=== PATIENT | male | born 1945 | race Caucasian/White ===

== ENCOUNTER → 2018-04-15 | Outpatient (CLI) | payer MEDICARE ==
--- NOTE | 2018-04-15 15:51 | KCIC ---
EXAM: Lumbar spine, flexion and extension. HISTORY: Pain. COMPARISON: CT dated 12/20/2011. FINDINGS: Lateral neutral, flexion and extension views of the lumbar spine are obtained. There is a transitional lumbosacral segment. This is considered a sacralized L5 segment for this dictation. Based on this numbering system, there is minimal grade 1 anterolisthesis of L4 on L5 in neutral position, measuring 2 mm. This increases to 5 mm with flexion and does not change with extension. There is degenerative endplate remodeling at all levels. There is facet arthropathy at the mid lower lumbar levels. IMPRESSION: 1. Grade 1 anterolisthesis of L4 on L5 which increases with flexion. 2. Multilevel degenerative change. 3. Transitional lumbosacral segment, considered a sacralized L5 segment for this dictation. Electronically signed by: Coco Salcedo MD (04/15/2018 3:47 PM) [email or web address]
== END | disposition home or self-care (01) ==
LOC: KCIC 15:01
PROVIDERS: ATTEND Neurological Surgery
DX: M43.16 Spondylolisthesis, lumbar region (principal); M47.896 Other spondylosis, lumbar region
CPT/HCPCS: 72100

== ENCOUNTER → 2018-05-06 | Outpatient (CLI) | payer MEDICARE ==
[~2018-05-06] MED LIST: AMLO2.5T3 PO; ASPI-630 PO; IOHEXOL 180 MG/ML 10 ML VIAL. ONE; methylPREDNISolone ACETATE 40 MG/ML VIAL. ONE; methylPREDNISolone ACETATE 80 MG/ML VIAL. ONE
--- NOTE | 2018-05-06 19:14 | PAIN ---
DATE OF SERVICE: 05/06/2018 INITIAL CONSULTATION FOR PAIN CLINIC CHIEF COMPLAINT: Low back and left lower extremity pain. HISTORY OF PRESENT ILLNESS: This is a 72-year-old male who presents with history of pain in the low back, left lower extremity, status post lumbar diskectomy at 3-4 and 4-5 about 6 years ago with similar symptoms. The patient reports the pain was completely relieved until about the past 6 months when it came back gradually, not a result of any specific injury or accident he is aware of, radiating to the low back and left buttock, posterior gluteus, posterior lateral thigh, lateral anterior thigh and into the feet, where his foot feels swollen on the left side. The patient reports the pain is sharp, stabbing, tingling, radiating, worse with walking, standing, changing positions, wakes him up at night only very rarely, most nights does not, does not affect his bowel or bladder control, but does affect his ability to walk where his left leg fatigues easily. The patient has had no recent physical therapies or other chiropractic treatments or other exercises. He walks daily, but the pain is beginning to impede this. The patient reports a disability rate from 0-10, 10 being the worst, is a 3 with family and home responsibilities, 6 with recreation, 4 with social activity, 3 with occupation and sexual behavior, and 0 with self-care and life support activities. The patient did have a repeat MRI scan of the lumbar spine showing mild levoscoliosis, mild degenerative change in the lumbar spine with facet degenerative changes most pronounced at L5 and S1, central canal stenosis most pronounced at L3-L4 and L4-L5 with mild disk bulge and moderate facet degenerative changes with mild central stenosis, and mild bilateral neuroforaminal narrowing at L4-L5 as well as L3-L4. PAST MEDICAL HISTORY: Significant for hypertension, arthritis, cataracts. PREVIOUS SURGERY: Include lumbar laminectomy 6 years ago and diskectomy, bilateral knee replacements in 08/2016, multiple previous knee surgeries and cataract extraction. CURRENT MEDICATIONS: Include amlodipine and daily baby aspirin, which he has held for 3 days prior to this visit. ALLERGIES: The patient has no known drug allergies. FAMILY HISTORY: Significant for no major medical problems or conditions he is aware of. SOCIAL HISTORY: The patient drinks alcohol only very rarely, does not use tobacco, does not use any illegal, illicit or recreational drugs. He is , lives with his spouse and lives locally in [place], [place]. REVIEW OF SYSTEMS: The patient's review of systems is positive for those items mentioned in history of present illness. All systems reviewed and otherwise negative. It is complete, full and well documented on the patient's chart. PHYSICAL EXAMINATION: VITAL SIGNS: Blood pressure is 113/73, pulse is 85, respirations 18, temperature 98.2 degrees Fahrenheit. HEENT: Shows normocephalic, atraumatic. Extraocular movements are intact and symmetrical. Oral cavity: Mucous membranes moist and pink. Dentition is intact. NECK: Shows anterior throat supple without palpable lymphadenopathy noted. Swallow reflex symmetrical. CHEST: Shows normal with inspection. Breath sounds are clear to auscultation bilaterally. HEART: Shows S1, S2 clear. No murmurs auscultated. ABDOMEN: Obese, soft, nontender, nondistended. No palpable organomegaly is noted. No rebound or guarding demonstrated. BACK: Shows spine grossly in the midline, normal appearing thoracic kyphosis and minor flattening of lumbar lordotic curvature. A well-healed surgical scar noted in the midline. Lumbar paraspinous muscle shows symmetrical on inspection, on palpation shows some moderate tenderness only diffusely in the low lumbar paraspinous muscles bilaterally. No tenderness over the spinous processes, sacrum or sacroiliac regions. The patient has good rotational motion of the lumbar spine both laterally as well as extension and flexion without significant pain or difficulty noted. EXTREMITIES: The patient's lower extremities show deep tendon reflexes at 1+ in the patellar and tendo calcaneus tendons and equal. Motor exam is strong with 5/5 dorsiflexion, extension, quadriceps and hamstring flexion. Peripheral pulses are 1+ posterior tibia. No peripheral edema is noted. Straight leg raise noted to be negative bilaterally. Gaenslen's and Jose maneuvers are negative bilaterally as well. The patient is able to stand, stand on his toes without difficulty or loss of balance, walks with a normal appearing gait, does not appear to favor the right or left lower extremity significantly, not using any assistive devices to ambulate. SKIN: Shows warm and dry, good turgor. No edema. No sores, rashes or bruising. IMPRESSION: 1. This is a 72-year-old male with approximately 6-month history of increasing pain in low back and left lower extremity in a radicular fashion. 2. MRI scan of the lumbar spine as noted. 3. Hypertension. 4. Arthritis. PLAN: Options were discussed with the patient including conservative medical management, physical therapy, and interventional technique. He would like to pursue interventional techniques. We discussed a lumbar epidural steroid injection using description as well as anatomical models to describe the procedure. Risks were then discussed including, but not limited to bleeding, infection, possibility of epidural hematoma, subsequent neurologic compromise, dural punctures, headaches, spinal cord and/or nerve damage, side effects of steroid medication and poor results regarding pain control. The patient understands and wished to proceed. The patient will return to the clinic in approximately 2 weeks for followup. He was counseled on his return appointment, activity level and side effects to be aware of. DIAGNOSES: Lumbar radiculopathy with lumbar degenerative disk disease, lumbar spinal stenosis and post-lumbar laminectomy syndrome. PROCEDURE: Lumbar epidural steroid injection, translaminar approach at L4-L5 level using C-arm fluoroscopic guidance under sterile prep and drape using local anesthetic. MEDICATION INJECTED: A total of 120 mg Depo-Medrol plus 10 mL of preservative-free normal saline and 2 mL of Isovue for contrast. CONDITION AT DISCHARGE: Stable. The patient tolerated the procedure well, had no complications. SAMPSON RICHMOND MD DR: ALEXANDRA/yonny JOB#: [id number] / [id number]
== END ==
LOC: PNCL 13:55
PROVIDERS: ATTEND Anesthesiology
DX: M51.16 Intervertebral disc disorders with radiculopathy, lumbar region (principal); M48.061 Spinal stenosis, lumbar region without neurogenic claudication; M96.1 Postlaminectomy syndrome, not elsewhere classified; I10 Essential (primary) hypertension; M19.90 Unspecified osteoarthritis, unspecified site; Z98.890 Other specified postprocedural states; Z98.49 Cataract extraction status, unspecified eye; Z96.653 Presence of artificial knee joint, bilateral; Z79.82 Long term (current) use of aspirin; Z79.899 Other long term (current) drug therapy; Z72.89 Other problems related to lifestyle
CPT/HCPCS: 62323; J1030; J1040; Q9965

== ENCOUNTER → 2018-07-21 | Outpatient (CLI) | payer MEDICARE ==
[~2018-07-21] MED LIST changes: -AMLO2.5T3 PO; +AMLO2.5T5 PO
--- NOTE | 2018-07-22 02:09 | PAIN ---
DATE OF SERVICE: 07/21/2018 PROGRESS NOTE FOR PAIN CLINIC DIAGNOSES: Lumbar radiculopathy with lumbar degenerative disk disease, lumbar spinal stenosis and post-lumbar laminectomy syndrome. HISTORY OF PRESENT ILLNESS: The patient is a 73-year-old male who returns for followup status post lumbar epidural steroid injection x 1 on 05/06/2018. The patient did very well with this, reports about an 80% improvement for the first few months and then about a 50% improvement over the past month. The patient reports still painful in the low back and left leg but much better than it was previously. The patient reports it is a 6 on a scale 10 at its worst, 5 on average, 0 at its least and is a 5 today. The patient is a sharp, tingling, burning, stabbing in the low back, radiating to the posterior gluteus, posterolateral thigh, lateral anterior thigh, medial thigh, sometimes in the lower leg and medial aspect as well but usually in the upper leg and in the back. The patient reports no new motor or sensory deficits and no new bowel or bladder incontinence or other complaints. The patient reports he has been increasing his activity with greater ease and comfort, both at home, traveling better, sleeping well at night, improved with walking distances especially. PHYSICAL EXAMINATION: VITAL SIGNS: The patient's blood pressure is 151/89, pulse 53, respirations are 18 and temperature 97.8 degrees Fahrenheit. Height is 6 feet 3 inches and weight is 252 pounds. GENERAL: The patient is awake, alert, oriented, appropriate and very pleasant demeanor. HEENT: Head shows normocephalic and atraumatic. Extraocular movements are intact and symmetrical. Oral cavity: Mucous membranes are moist and pink. Dentition is intact. NECK: Shows anterior throat supple without palpable lymphadenopathy noted. Swallow reflex symmetrical. CHEST: Shows normal on inspection. Breath sounds clear to auscultation bilaterally. HEART: Shows S1 and S2 clear. No murmurs auscultated. ABDOMEN: Soft, nontender and nondistended. No palpable organomegaly is noted. No rebound or guarding demonstrated. BACK: Shows spine grossly in the midline. Normal appearing thoracic kyphosis and lumbar lordotic curvatures slightly flattened. The patient's lumbar paraspinous musculature shows symmetrical on inspection, with palpation shows some moderate tenderness to palpation diffusely in the mid and lower lumbar distribution without radiation. The patient shows good rotational motion of the lumbar spine, both laterally as well as extension and flexion without recreating pain. EXTREMITIES: The patient's lower extremities show deep tendon reflexes 1+ in the patella and tendo-calcaneus tendons. Motor exam is approximately 5/5 with dorsiflexion, extension, quadriceps and hamstring flexion and equal and symmetrical. Peripheral pulses are 1+ posterior tibial. No peripheral edema is noted bilaterally. Options were discussed with the patient. The patient's old chart was reviewed as well as his current medication regimen updated. Current review of systems updated today as well. We will proceed with a lumbar epidural steroid injection, the second in this series. Risks were again discussed including, but not limited to bleeding, infection, possibility of epidural hematoma, subsequent neurological compromise, dural puncture, headaches, spinal cord and/or nerve damage, side effects of steroid medication and poor results regarding pain control. The patient understands and wished to proceed. The patient will return to the clinic in approximately 2 weeks for followup, was counseled as to return appointment, activity level and side effects to be aware of. DIAGNOSIS: Lumbar radiculopathy with lumbar degenerative disk disease, lumbar spinal stenosis and post-lumbar laminectomy syndrome. PROCEDURE: Lumbar epidural steroid injection, translaminar approach at the L4-L5 level using C-arm fluoroscopic guidance under sterile prep and drape using local anesthetic. MEDICATION INJECTED: A total of 120 mg Depo-Medrol plus 10 mL of preservative-free normal saline and 2 mL of Isovue for contrast. CONDITION AT DISCHARGE: Stable. The patient tolerated the procedure well and had no complications. SAMPSON RICHMOND MD DR: ALEXANDRA/yonny JOB#: [id number] / [id number]
== END | disposition home or self-care (01) ==
LOC: PNCL 13:45
PROVIDERS: ATTEND Anesthesiology
DX: M51.16 Intervertebral disc disorders with radiculopathy, lumbar region (principal); M48.061 Spinal stenosis, lumbar region without neurogenic claudication; M96.1 Postlaminectomy syndrome, not elsewhere classified
CPT/HCPCS: 62323; J1030; J1040; Q9965

== ENCOUNTER → 2021-01-10 | Outpatient (CLI) | payer MEDICARE ==
[~2021-01-10] MED LIST changes: +ACET325T9 PO; +CARV6.2511 PO; +CEPH125S PO; +FURO-69 PO; -methylPREDNISolone ACETATE 40 MG/ML VIAL. ONE
--- NOTE | 2021-01-10 11:20 | PDOC ---
Progress Note - Pain Clinic Date of Service: DOS: DATE: 01/10/21 TIME: 11:16 Diagnosis: Dx: Lumbar radiculopathy with lumbar degenerative disc disease lumbar spinal stenosis and lumbar postlaminectomy syndrome History or Present Illness: HPI: 75-year-old male presents with history of pain low back and right lower extremity previously seen July 2018 patient did very well after lumbar epidural steroid injection but it was his left leg that was problematic now his right leg is going on for about 4 to 5 months patient reports that perhaps longer than that is very noticeable he did see his neurosurgeon who did a new MRI scan which we discussed with him today showing some significant stenosis at the L3-4 as well as L4-5 level and severe arthropathy at L4-5 with moderate to severe spinal stenosis L2-3 and moderate stenosis L3-4 and L4-5. Patient reports that his his right leg now which is new as his left leg was always problematic 1 but after his last visit here that leg his pain 100 and improvement for several years patient reports the pain now is increasing low back right lower extremity posterior gluteus posterior lateral thigh lateral anterior thigh anteromedial thigh medial lower leg patient describes it as stabbing and sharp aching severe worse with walking standing worse first thing in the morning but as the day goes by it does ease up slightly but is still difficult in the evening patient reports is not been awakened from sleep at night is generally better with sitting or laying down patient reports is a 10 on scale 10 is worse over the past week 10 on average 5 its least and is a 5 today. Patient reports no loss of motor function no bowel or bladder incontinence. Physical Exam: VS: Blood pressure is 136/79 pulse 57 respirations are 18 temperature is 98.0 F height is 6 feet 3 inches weight is 230 pounds PE: PHYSICAL EXAMINATION: GENERAL: The patient is awake, alert, oriented, appropriate, very pleasant in demeanor HEENT: Shows normocephalic, atraumatic. Extraocular movements are intact and symmetrical. Oral cavity: Mucous membranes moist and pink. NECK: Shows anterior throat supple without palpable lymphadenopathy noted. Swallow reflex symmetrical. CHEST: Shows normal on inspection. Breath sounds are clear bilaterally, distant but no rales rhonchi or wheezes. HEART: Shows S1, S2 clear. No murmurs auscultated. ABDOMEN: Soft, nontender, nondistended, obese. No palpable organomegaly is noted. BACK: Shows spine grossly in the midline. Normal-appearing cervical lordotic curvature. There is slightly increased thoracic kyphosis, some flattening of the lumbar lordotic curvature, with well-healed surgical scar in the midline. Lumbar paraspinous muscles show symmetrical on inspection, on palpation shows some moderate tenderness diffusely throughout the upper, middle and lower distribution of the paraspinous muscles without specific trigger points, without radiation of pain. The patient has good rotational motion of the lumbar spine, both laterally as well as extension and flexion without significant difficulty. No tenderness over the spinous processes, sacrum or sacroiliac regions. EXTREMITIES: Lower extremities show deep tendon reflexes 1+ in the patellar and tendo calcaneus tendons. Motor exam is 5 on a scale of 5 with right dorsiflexion, extension, quadriceps and hamstring flexion and 5/5 on the left. Peripheral pulses are 1+ posterior tibial. No peripheral edema is noted bilaterally. Lower extremities are warm and dry to touch, equal in color and appearance. SKIN: Shows warm and dry, good turgor. No edema. No sores, rashes or bruising throughout. Procedure: Procedure: Options were discussed with the patient. Patient chart was reviewed, current medication regimen updated, and current review of systems updated today as well. We will proceed with lumbar epidural steroid injection today with fluoroscopic guidance. Risks were discussed including but not limited to: Bleeding, infection, possibility of epidural hematoma and subsequent neurological compromise, dural puncture, headaches, spinal cord and/or nerve damage, side effects of steroid medication, and poor results regarding pain control. Patient understands and wished to proceed. Patient will return to the clinic in approximately 2 weeks for follow-up, was counseled as to return appointment active level and side effects be aware of. Medication Injected: Med Injected: Procedure is lumbar epidural steroid injection under local anesthetic using mikayla rile prep and drape at the L4-5 level using C-arm fluoroscopic guidance in both AP and lateral views medications injected is 120 mg Depo-Medrol +10mL preservative-free normal saline and 2 mL contrast- condition at discharge is stable patient tolerated procedure well had no complications. Condition at Discharge: Condition at Discharge: Condition at discharge stable, patient already the procedure well and had no complications. SAMPSON RICHMOND MD Jan 10, 2021 11:19
--- NOTE | 2021-01-10 11:20 | PDOC4 ---
Procedure Note: ICD 10 Code: ICD 10 Code: M54.16 M4 8.07 M5 1.36 M 96.1 Procedure Note: Patient was consented for lumbar epidural steroid injection with fluoroscopic guidance. Risks were discussed including but not limited to: Bleeding, infection, possibility of epidural hematoma and subsequent neurological compromi se, dural puncture, headaches, spinal cord and/or nerve damage, side effects of steroid medication, and poor results regarding pain control. Patient understands and wished to proceed. Procedure is lumbar epidural steroid injection under local anesthetic using sterile prep and drape at the L4-5 level using C-arm fluoroscopic guidance in both AP and lateral views medications injected is 120 mg Depo-Medrol +10mL preservative-free normal saline and 2 mL contrast- condition at discharge is stable patient tolerated procedure well had no complications. SAMPSON RICHMOND MD Jan 10, 2021 11:20
== END | disposition home or self-care (01) ==
LOC: PNCL 10:16
PROVIDERS: ATTEND Anesthesiology
DX: M51.16 Intervertebral disc disorders with radiculopathy, lumbar region (principal); M48.061 Spinal stenosis, lumbar region without neurogenic claudication; M96.1 Postlaminectomy syndrome, not elsewhere classified; Z79.82 Long term (current) use of aspirin; Z79.899 Other long term (current) drug therapy
CPT/HCPCS: 62323; J1040; Q9965

== ENCOUNTER → 2021-02-07 | Outpatient (CLI) | payer MEDICARE ==
--- NOTE | 2021-02-07 11:35 | PDOC4 ---
Procedure Note: ICD 10 Code: ICD 10 Code: M54.16 M4 8.06 M51.36 Procedure Note: Patient was consented for lumbar epidural steroid injection with fluoroscopic guidance. Risks were discussed including but not limited to: Bleeding, infection, possibility of epidural hematoma and subsequent neurological compromise, dural puncture, headaches, spinal cord and/or nerve damage, side effects of steroid medication, and poor results regarding pain control. Patient understands and wished to proceed. Procedure is lumbar epidural steroid injection under local anesthetic using mikayla rile prep and drape at the L4-5 level using C-arm fluoroscopic guidance in both AP and lateral views medications injected is 120 mg Depo-Medrol +10mL preservative-free normal saline and 2 mL contrast- condition at discharge is stable patient tolerated procedure well had no complications. SAMPSON RICHMOND MD Feb 07, 2021 11:35
--- NOTE | 2021-02-07 11:35 | PDOC ---
Progress Note - Pain Clinic Date of Service: DOS: DATE: 02/07/21 TIME: 11:30 Diagnosis: Dx: Lumbar radiculopathy with lumbar degenerative disc disease lumbar spinal stenosis and lumbar postlaminectomy syndrome History or Present Illness: HPI: 75-year male returns for follow-up status post lumbar epidural steroid injection x1. Patient reports about 70% improvement in the low back and right lower e xtremity pain but now has new finding of left lower extremity pain with walking and standing that is becoming more noticeable with time. Patient reports that he has not had pain in his left leg since he had his surgery in the right leg it always been the main problem but now it is in both legs but again still much worse on the right side patient reports is a 10 on scale 10 is worse over the past week 6 on average 3 its least and is a 3 today. Patient reports stabbing and sharp in the back on and off in intensity radiating and shooting in the right leg posterior gluteus lateral thigh anterior thigh medial thigh on the right side and some in the posterior aspect of the thigh on the left. Patient reports no bowel or bladder incontinence no loss of motor function he is actually stopped using his walker since his last visit he continued walking with greater ease and comfort household activities as well as try with greater ease and sleeping better at night patient reports he generally does not awaken him from sleep at night. Patient reports no new bowel or bladder incontinence. Physical Exam: VS: Blood pressure is 147/81 pulse 55 respirations 18 temperature 97.5 F height is 6 feet 3 inches weight is 233 pounds PE: PHYSICAL EXAMINATION: GENERAL: The patient is awake, alert, oriented, appropriate, very pleasant in demeanor HEENT: Shows normocephalic, atraumatic. Extraocular movements are intact and symmetrical. Oral cavity: Mucous membranes moist and pink. NECK: Shows anterior throat supple without palpable lymphadenopathy noted. Swallow reflex symmetrical. CHEST: Shows normal on inspection. Breath sounds are clear bilaterally, distant but no rales or rhonchi. HEART: Shows S1, S2 clear. No murmurs auscultated. ABDOMEN: Soft, nontender, nondistended, obese. No palpable organomegaly is noted. BACK: Shows spine grossly in the midline. Normal-appearing cervical lordotic curvature. There is slightly increased thoracic kyphosis, some minor flattening of the lumbar lordotic curvature. Lumbar paraspinous muscles show symmetrical on inspection, on palpation shows some moderate tenderness diffusely throughout the upper, middle and lower distribution of the paraspinous muscles without specific trigger points, without radiation of pain. The patient has good rotational motion of the lumbar spine, both laterally as well as extension and flexion without significant difficulty. EXTREMITIES: Lower extremities show deep tendon reflexes 1 in the patellar and tendo calcaneus tendons. Motor exam is 5 on a scale of 5 with right dorsiflexion, extension, quadriceps and hamstring flexion and 5/5 on the left. Peripheral pulses are 1+ posterior tibial. No peripheral edema is noted bilaterally. Lower extremities are warm and dry. SKIN: Shows warm and dry, good turgor. No edema. No sores, rashes or bruising throughout. Procedure: Procedure: Options discussed with the patient. Patient's old chart was reviewed as his current medication regimen updated current review of systems updated today as well. We will proceed with a lumbar epidural steroid injection today with fluoroscopic guidance. Risks were discussed including but not limited to: Bleeding, infection, possibility of epidural hematoma and subsequent neurological compromise, dural puncture, headaches, spinal cord and/or nerve damage, side effects of steroid medication, and poor results regarding pain control. Patient understands and wished to proceed. Patient return to the clinic in approximate 2 weeks for follow-up, was counseled as to return appointment, typical, and side effects to be aware of. Medication Injected: Med Injected: Procedure is lumbar epidural steroid injection under local anesthetic using sterile prep and drape at the L4-5 level using C-arm fluoroscopic guidance in both AP and lateral views medications injected is 120 mg Depo-Medrol +10mL preservative-free normal saline and 2 mL contrast- condition at discharge is stable patient tolerated procedure well had no complications. Condition at Discharge: Condition at Discharge: Condition at discharge is stable, patient tolerated procedure well and had no complications. SAMPSON RICHMOND MD Feb 07, 2021 11:35
== END | disposition home or self-care (01) ==
LOC: PNCL 10:40
PROVIDERS: ATTEND Anesthesiology
DX: M51.16 Intervertebral disc disorders with radiculopathy, lumbar region (principal); M48.061 Spinal stenosis, lumbar region without neurogenic claudication; M96.1 Postlaminectomy syndrome, not elsewhere classified; Z79.82 Long term (current) use of aspirin; Z79.899 Other long term (current) drug therapy
CPT/HCPCS: 62323; J1040; Q9965

== ENCOUNTER → 2021-03-15 | Outpatient (CLI) | payer MEDICARE ==
[~2021-03-15] MED LIST changes: +CEPH500T PO; +DOCU-109 PO; +FURO80TA3 PO; +HYDR-2761 PO; -IOHEXOL 180 MG/ML 10 ML VIAL. ONE; +LOSA25TA PO; -methylPREDNISolone ACETATE 80 MG/ML VIAL. ONE
[2021-03-15 14:45] LABS: BASO % 1 % (0-3); EOS # 0.2 x10^3/uL (0.0-0.7); EOS % 4 % (0-3); HEMATOCRIT 39.9 % (39.0-53.0); HEMOGLOBIN 13.5 g/dL (13.0-17.5); LYMPH # 1.3 x10^3/uL (1.0-4.8); LYMPH % 25 % (24-48); MEAN CORPUSCULAR HEMOGLOBIN 33 pg (25-35); MEAN CORPUSCULAR HGB CONC 34 g/dL (31-37); MEAN CORPUSCULAR VOLUME 97 fL (79-100); MONO # 0.6 x10^3/uL (0.0-1.1); MONO % 11 % (0-9); NEUT # 3.2 x10^3/uL (1.8-7.7); NEUT % 60 % (31-73); PLATELET COUNT 160 x10^3/uL (140-400); RED BLOOD COUNT 4.11 x10^6/uL (4.30-5.70); RED CELL DISTRIBUTION WIDTH 14.9 % (11.5-14.5); WHITE BLOOD COUNT 5.3 x10^3/uL (4.0-11.0)
[2021-03-15 14:59] LABS: ALBUMIN 3.4 g/dL (3.4-5.0); ALBUMIN/GLOBULIN RATIO 1.1 (1.0-1.7); CREATININE 1.1 mg/dL (0.7-1.3); GFR 64.9; POTASSIUM 3.9 mmol/L (3.5-5.1); TOTAL BILIRUBIN 0.6 mg/dL (0.2-1.0); TOTAL PROTEIN 6.5 g/dL (6.4-8.2)
== END ==
LOC: SURGPAT 13:27
PROVIDERS: ATTEND Neurological Surgery
DX: Z01.812 Encounter for preprocedural laboratory examination (principal); M48.062 Spinal stenosis, lumbar region with neurogenic claudication; M54.16 Radiculopathy, lumbar region
CPT/HCPCS: 36415; 80053; 85025; 87641

== ENCOUNTER 2021-03-20 07:03 | Observation (INO) | payer MEDICARE ==
[2021-03-15 14:12] VITALS: BP 110/74
[~2021-03-20] VITALS: Ht 188 cm; Wt 104.0 kg
[2021-03-20] VITALS (10 sets, daily range): BP systolic 94–187; BP diastolic 51–85
--- NOTE | 2021-03-20 03:26 | PREOP HP ---
DATE OF SERVICE: 03/20/2021 HISTORY OF PRESENT ILLNESS: The patient is a pleasant 75-year-old. In 2011, he underwent lumbar surgery for a synovial cyst on the left at L3-4 and L4-5 and did well. Beginning in 11/2020, he developed mild low back pain and right buttock pain that would radiate to the hip, lateral thigh and leg. The pain has gradually become more severe. He underwent lumbar epidural steroid injections and had minimal relief. He says the greatest pain is in his right leg. He occasionally uses a walker. He takes Tylenol and Advil and has been limiting his activities. CURRENT MEDICATIONS: Advil, naproxen, losartan, furosemide, Tylenol, Coreg, amlodipine, aspirin. PAST MEDICAL HISTORY: Hypertension, artificial joints, bilateral knee replacements, Staph infection. PAST SURGICAL HISTORY: Multiple knee surgeries, lumbar laminectomy in 2011, knee surgery in 2020 as well. FAMILY HISTORY: Cancer, diabetes, spine problems. SOCIAL HISTORY: Retired, . Does not smoke. Drinks alcohol 1-2 times per year. ALLERGIES: HE IS INTOLERANT TO SOME PAIN MEDICATIONS. REVIEW OF SYSTEMS: A 12-point review of systems was performed and is noncontributory except that mentioned above. PHYSICAL EXAMINATION: GENERAL: Alert, pleasant, in no acute distress. HEENT: Head is normocephalic, atraumatic. SKIN: Warm and dry. Well-healed lumbar incision. MUSCULOSKELETAL: Lumbar paraspinal muscle bulk is normal, restricted range of motion of the lumbar spine, [id number] tenderness of the lower lumbar spine with palpation, normal range of motion of the lower extremities bilaterally. EXTREMITIES: No clubbing, cyanosis or edema. NEUROLOGIC: Alert and oriented x 3. Normal recent and remote memory. Strength is 5/5 in the lower extremities bilaterally. Sensory was intact to light touch in the lower extremities bilaterally. There is decreased sensation involving his right foot. Reflexes were trace and symmetric in the lower extremities bilaterally, positive straight leg raising on the right, negative straight leg raising on the left and unsteady gait. IMAGING: I reviewed an MRI scan from 12/14/2020. On that study, there are 3 areas of concern. At L4-5, there is a small grade 1 anterolisthesis along with moderately severe spinal stenosis, especially lateral recess narrowing on the right side. At L3-4, there is again moderate stenosis with, especially severe lateral recess narrowing on the right side. At L2-3, there is central and right-sided disk herniation within the canal, which is associated with moderately severe spinal stenosis. ASSESSMENT AND PLAN: The patient has a persistent right lumbar radiculopathy, which is becoming more severe and interfering with all of his activities. My recommendation is that he consider surgery. At this point, I would operate at L4-5 and L3-4 and decompress the central and right sides of the canal to help with his right leg pain. I remain concerned about the stenosis at L2-3. We reviewed the risk of the surgery and the technique and the expected postoperative course. He understands and would like to go ahead. LIYAH/REJI DR: Ivette TID: [id number] ANA
[~2021-03-20 07:03] MED LIST changes: +BUPIVACAINE-EPI 0.5% 30 ML VIAL KIT. ONE; +DEXAMETHASONE SOD PHOS 4 MG/ML VIAL ONE; -DOCU-109 PO; +GELATIN SPONGE SIZE 100. ONE; +GLYCOPYRROLATE 1 MG/5 ML VIAL. ONE; -HYDR-2761 PO; +HYDROmorphone 2 MG/ML VIAL IVP PRN; +IV RINGERS,LACTATED 1000ML 1,000 ML IV SCH; +KETOROLAC 60 MG/2 ML VIAL. ONE; +LIDOCAINE 2% PF 5 ML VIAL. ONE; +MORPHINE SULFATE 2 MG/ML INJ. IVP PRN; +NEOSTIGMINE METHYLSULFATE 5 MG/5 ML SYRINGE. ONE; +ONDANSETRON PF 4 MG/2 ML VIAL. ONE; +PHENYLEPHRINE 10 MG/ML VIAL. ONE; +PROCHLORPERAZINE 10 MG/2 ML VIAL. IVP PRN; +PROPOFOL 0 ML IV ONE; +PROPOFOL 10 MG/ML (20ML) VIAL. IV ONE; +REMIFENTANIL 1 MG VIAL. IV ONE; +ROCURONIUM 50 MG/5 ML VIAL. ONE; +SEVOFLURANE > 120 MINUTES. IH ONE; +THROMBIN TOPICAL 20,000 UNIT SPRAY.SYRN KIT TP ONE; +ceFAZolin SODIUM 1 GM in IV NORMAL SALINE 1000ML BAG 1,000 ML IRR ONE; +fentaNYL PF VIAL 100 MCG/2 ML VIAL IVP PRN; +fentaNYL PF VIAL 100 MCG/2 ML VIAL ONE
[2021-03-20] MEDS ORDERED: REMIFENTANIL 1 MG VIAL. IV ONE ×2 (07:50→09:12)
[2021-03-20] MEDS ORDERED: PROPOFOL 100 ML IV ONE ×2 (08:24→12:00)
[2021-03-20] MEDS ORDERED: ePHEDrine PF IN SALINE 50 MG/10 ML SYRINGE. IV ONE (08:25)
[2021-03-20] MEDS ORDERED: PROPOFOL 50 ML IV ONE ×3 (09:43→11:59)
[2021-03-20] MEDS ORDERED: HYDR-2761 PO (09:49)
[2021-03-20] MEDS ORDERED: DOCU-109 PO (09:49)
--- NOTE | 2021-03-20 09:50 | DISCH ---
DISCHARGE INSTRUCTIONS Condition on Discharge Condition on Discharge: Stable Activity After Discharge Activity Instructions for Disc: Activity as tolerated, Avoid exertion Other activity instructions: no driving for a week Bathing Instructions: Shower-keep dressing dry Lifting Instructions after Dis: No heavy lifting, No pulling or pushing, Do not lift >10 pounds Diet after Discharge Additional Diet Restrictions: resume home diet Wound Incision Care Wound/Incision Care: Ice to area for comfort Other wound/incision instructi: may remove dressing in 48 hours if dry, no soaking Contacting the [facility] after DC Call your doctor for: Concerns you may have Follow-Up Follow up with: Dr. Flood's nurse in 2 weeks [phone] SEN FLOOD MD Mar 20, 2021 09:50
[2021-03-20] MEDS ORDERED: HYDROmorphone 2 MG/ML VIAL ONE (10:52)
[2021-03-20] MEDS ORDERED: fentaNYL PF VIAL 100 MCG/2 ML VIAL ONE (14:04)
[2021-03-20] MEDS: fentaNYL PF VIAL 100 MCG/2 ML VIAL IVP PRN ×2 (14:17→15:28)
[2021-03-20] MEDS ORDERED: HYDROcodone/APAP 5/325MG 1 TAB TABLET PO PRN ×2 (15:15)
[2021-03-20] MEDS ORDERED: MAG HYDROX/ALUMINUM HYD/SIMETH 30 ML ORAL.SUSP PO PRN (15:15)
[2021-03-20] MEDS ORDERED: IV NORMAL SALINE 1000ML BAG 1,000 ML IV SCH (15:15)
[2021-03-20] MEDS ORDERED: METHOCARBAMOL 750 MG TABLET PO PRN (15:15)
[2021-03-20] MEDS ORDERED: diphenhydrAMINE HCL 25 MG CAPSULE PO PRN (15:15)
[2021-03-20] MEDS ORDERED: 0.9 % SODIUM CHLORIDE 10 ML DISP.SYRIN. IV PRN (15:15)
[2021-03-20] MEDS ORDERED: CALCIUM CARBONATE 500 MG TAB.CHEW PO PRN (15:15)
[2021-03-20] MEDS ORDERED: ACETAMINOPHEN 325 MG TABLET. PO PRN (15:15)
[2021-03-20] MEDS ORDERED: NALOXONE 0.4 MG/ML VIAL. IV PRN ×2 (15:15)
[2021-03-20] MEDS ORDERED: POTASSIUM CL 20MEQ D5-0.45NACL 1,000 ML IV SCH (16:00)
--- NOTE | 2021-03-20 16:00 | NUR ---
Arrived to unit by cart. Pt transferred self to bed noted dressing lower back saturated. Reinforced it with ABD dressings and hypofix tape. Able to move all extremities, pedal pulses + bilaterally and warm to touch. SILVESTRE's and EJ's on bilaterally. IVF's intact and infusing. O2 at 3l per n/c. No c/o pain at this time. Oriented to room and controls. Side rails up x's 2 with call light in reach. at bedside. Cont. monitor.
[2021-03-20] MEDS: CARVEDILOL 6.25 MG TABLET. PO SCH (17:00)
[2021-03-20] MEDS ORDERED: LOSARTAN POTASSIUM 25 MG TABLET. PO SCH (21:00)
[2021-03-20] MEDS: ACETAMINOPHEN 325 MG TABLET. PO SCH (22:00)
[2021-03-20] MEDS: CEPHALEXIN 250 MG CAPSULE. PO SCH (22:19)
[2021-03-20] MEDS: DOCUSATE SODIUM 100 MG CAPSULE. PO SCH (22:20)
[2021-03-21 03:19] VITALS: BP 174/68
[2021-03-21 07:00] VITALS: BP 133/80
--- NOTE | 2021-03-21 08:05 | NUR ---
Ambulated in the hallway with walker and tolerated it well. Had to reinforced dressing prior to walk. Up in chair and ice pack applied. at bedside. Cont. monitor.
[2021-03-21] MEDS: ACETAMINOPHEN 325 MG TABLET. PO SCH (08:41)
[2021-03-21] MEDS: DOCUSATE SODIUM 100 MG CAPSULE. PO SCH (08:42)
[2021-03-21] MEDS: CARVEDILOL 6.25 MG TABLET. PO SCH (08:42)
[2021-03-21] MEDS: CEPHALEXIN 250 MG CAPSULE. PO SCH (08:42)
[2021-03-21] MEDS ORDERED: FLU VACC QUAD 21-22 (6MOS+) PF 0.5 ML SYRINGE. VAX IM ONE (09:00)
[2021-03-21] MEDS ORDERED: ASPIRIN CHEWABLE 81 MG TABLET. PO SCH (09:00)
[2021-03-21] MEDS ORDERED: FUROSEMIDE 80 MG TABLET. PO SCH (09:00)
[2021-03-21 11:00] VITALS: BP 90/64
--- NOTE | 2021-03-21 12:07 | OP ---
DATE OF SURGERY: 03/20/2021 PREOPERATIVE DIAGNOSIS: Lateral recess stenosis and right lumbar radiculopathy, L3-L4, L4-L5 along with disc herniation L2-L3 with right-sided nerve root compression. POSTOPERATIVE DIAGNOSIS: Lateral recess stenosis and right lumbar radiculopathy, L3-L4, L4-L5 along with disc herniation L2-L3 with right-sided nerve root compression.. OPERATIONS PERFORMED: 1. Hemilaminotomy with microdecompression of dura and nerve root, L3-L4 and L4-L5. 2. Hemilaminotomy and microdiscectomy, L2-L3. The operation was done with multimodality monitoring including EMG monitoring, SSEP monitoring. We employed fluoroscopy as well as microscope and microscopic dissection. SURGEON: Reynaldo Banda M.D. LINE HELPER: DEE Peres assisted with the surgery. She assisted with exposure to microdecompression as well as microdiscectomy closure. OPERATIVE INDICATIONS: The patient is a pleasant 75-year-old man who developed severe intractable back and right leg pain. He failed conservative measures and when I initially saw him, I felt that surgery at L3-L4 and L4-L5 would be adequate; however, when listening to the patient's history and reviewing the films on the day of surgery, I felt that the large disc herniation at L2-L3 could possibly be playing a role and I felt that should be included in the operation. DESCRIPTION OF PROCEDURE: Following general endotracheal anesthesia, the patient was positioned prone on the Loyd table. Lumbar region prepped and draped in the standard fashion. SILVESTRE hose and AV impulse boots were applied for DVT prophylaxis. A microscope was draped, fluoroscopy was draped, brought to field. Monitoring was established. Ancef 2 grams given less than one hour prior to initiation of the surgery. Using fluoroscopic guidance, an incision was made extending from the L2 disc space to the L2-L3 disc space down to the L4-L5 disc space. I undercut the lumbodorsal fascia above and below this and reflected the paraspinal muscles, placed a [place] microdisk retractor inferiorly. I brought in the microscope and beginning at L4-L5 through the microscope, I burred down a generous hemilaminotomy. There was considerable scarring around the nerve root. As I worked, I was able to decompress the entire region. I did trim away very thickened ligamentum flavum and performed a generous partial foraminotomy. The disc was flat, no discectomy was warranted. I then moved up and performed the identical operation at L3-L4. At this level, there was also considerable scarring around the dura and nerve root; however, not as severe as at L4-L5. I removed the ligament and decompressed the dura and nerve root and performed a generous partial foraminotomy. Again, the disc was palpated and was not bulging, no discectomy was warranted. I then moved up to L2-L3 in a similar fashion, created the exposure, trimmed away ligamentum flavum at the level of the disc space. There was a significant amount of disc bulging and I incised the annulus and removed a few disc fragments, which helped decompress the region. I then gently palpated beneath the dura and root with a [place] [facility] and teased back a large epidural fragment, which I then removed and then the entire region became very well decompressed. I completed my discectomy. I fully decompressed the entire area. The nerves were decompressed and I did perform a generous partial foraminotomy. I irrigated copiously and I closed the wound in layers after hemostasis was obtained with absorbable suture. The skin was closed with skin dianne. I felt the surgery went very well. JUANPABLO DR: Anali TID: [id number] ANA
--- NOTE | 2021-03-21 12:30 | NUR ---
Demonstrated to pt's how to change dressing. Answered questions and concerns. Verbalized understanding.
--- NOTE | 2021-03-21 13:35 | NUR ---
Discharge instructions given and prescriptions sent to pharmacy. Answered questions and concerns. Both pt and verbalized understanding. Extra dressing given. Pain med given prior to discharge. Escorted out by w/c.
--- NOTE | 2021-03-21 18:07 | PATHOLOGY ---
[facility] Accession Number: [id number] . 01 Material submitted: . vertebral column - LUMBAR DECOMPRESSION AND DISC . 01 Clinical history: . STENOSIS, RADICULOPATHY LUMBAR MICRODECOMPRESSION L3-4, L4-5, DISCECTOMY L2-3 . 02 Diagnosis: Bone and soft tissue "L3-4, L4-5 discectomy": - Reactive fibrocartilage. - Collection of crystals, suggestive of calcium pyrophosphate. - Unremarkable fragments of trabecular bone. - Focal areas of fibrin deposition. - Negative for malignancy. (CYNDEE:saba; 03/21/2021) MBR 03/21/2021 1735 Local . 02 Electronically signed: . Morgan So MD, Pathologist NPI- [id number] . 01 Gross description: . The specimen is received in formalin, labeled "Yakelin CancinoTamika, Kip, lumbar decompression and disc". Received are multiple segments of pale byers to pink-byers fibrous tissue admixed with fragments of gritty bone measuring 5.6 x 4.7 x 1.0 cm in aggregate dimensions. The specimen is submitted representatively in cassette A1, following light decalcification. ([facility]; 03/20/2021) NRI/NRI 03/20/2021 1731 Local . 02 Pathologist provided ICD-10: M99.79, M54.10 . 02 CPT . 621111, [id number] Specimen Comment: A courtesy copy of this report has been sent to [phone], [phone] Specimen Comment: [id number] Specimen Comment: Report sent to , DR DOMINIQUE Specimen Comment: A duplicate report has been generated due to demographic updates. Performed at: [id number] [facility] [address], [place], [place] [id number] MD Sonny Putnam MD Phone: [phone] Performed at: [address] [id number] MD Reuben Bennett MD Phone: [phone]
[2021-03-21] MEDS ORDERED: LACTOBACILLUS RHAMNOSUS GG 1 CAPSULE. PO SCH (21:00)
== END 2021-03-21 13:46 | disposition home or self-care (01) ==
LOC: SURG 07:03 → 4 NORTH 15:13
PROVIDERS: ADMIT Neurological Surgery; ATTEND Neurological Surgery
DX: M48.061 Spinal stenosis, lumbar region without neurogenic claudication (principal); M54.16 Radiculopathy, lumbar region; I10 Essential (primary) hypertension; Z23 Encounter for immunization; Z96.653 Presence of artificial knee joint, bilateral
CPT/HCPCS: 63030; 63035; 76000; 88304; 88311; 90471; 90686; 97161; A4364; A4930; A6254; A6258; G0378; G0379; J0690; J1100; J1170; J1885; J2370; J2405; J2704; J2710; J3010; J3480; J3490; J7030; A4223